=== PATIENT | female | born 1995 | race Caucasian/White ===

== ENCOUNTER → 2017-01-04 | Outpatient (REF) | payer BC, MEDICAID ==
[~2017-01-04] MED LIST: FERR-74 PO; NAPR220T76 PO; OXYC1TAB87 PO; PNV1CAPS13 PO
[2017-01-04 17:42] LABS: BILIRUBIN,URINE Negative (Negative); CLARITY,URINE Clear; COLOR,URINE Yellow; GLUCOSE, URINE (UA) Negative (Negative); LEUKOCYTE ESTERASE, URINE Negative (Negative); UROBILINOGEN,URINE 0.2 mg/dL (0.2-1.0)
== END ==
LOC: LAB 17:05
PROVIDERS: ATTEND Obstetrics & Gynecology
DX: Z34.81 Encounter for supervision of other normal pregnancy, first trimester (principal)
CPT/HCPCS: 81003; 87088

== ENCOUNTER → 2017-01-10 | Outpatient (CLI) | payer BC, MEDICAID ==
[2017-01-10 13:34] LABS: BASOPHILS % (AUTO) 0 % (0-2); EOSINOPHILS # (AUTO) 0.1 10^3uL; EOSINOPHILS % (AUTO) 1 % (0-4); LYMPHOCYTES # (AUTO) 1.3 X10^3; MEAN CORPUSCULAR HEMOGLOBIN 29.5 PG (26.0-34.0); MEAN CORPUSCULAR HGB CONC 33.3 g/dL (31.0-37.0); MEAN CORPUSCULAR VOLUME 89 FL (80-100); MEAN PLATELET VOLUME 9.4 FL (6.0-9.5); MONOCYTES # (AUTO) 0.2 X10^3; MONOCYTES % (AUTO) 3 % (3-11); NEUTROPHILS # (AUTO) 4.1 X10^3; NEUTROPHILS % (AUTO) 72 % (51-67); PLATELET COUNT 224 10^3uL (150-450); WHITE BLOOD COUNT 5.72 10^3uL (4.0-11.0)
--- NOTE | 2017-01-10 14:35 | Diagnostic Imaging Report ---
EXAM: Ultrasound OB, less than 14 weeks. DATE: January 10, 2017. INDICATION: A 21-year-old female, evaluation of dates. COMPARISON: February 12, 2015. FINDINGS: The cervical length is measured at 4.0 cm. The placenta is fundal and posterior without placenta previa. There is a single living intrauterine . heart rate is identified at 149 beats per minute. Estimated gestational age based on today's ultrasound measurements is 14 weeks and 1 day +/-1 week. anatomy is not well evaluated on this study. The fetus is in breech presentation. There is a simple-appearing cystic lesion in the right ovary measuring up to 2.4 x 1.7 cm in size which may relate to a follicle or simple cyst. There is no demonstrated free pelvic fluid or solid pelvic mass. IMPRESSION: 1. Single living intrauterine with estimated gestational age of 14 weeks and 1 day +/-1 week. 2. Limitations of anatomic assessment on this exam, relating to gestational age. Dictated by: Dictated on workstation # [id number]
[2017-01-10 18:01] LABS: HEPATITIS B SURFACE ANTIGEN C Negative
== END ==
LOC: RAD 13:16
PROVIDERS: ATTEND Obstetrics & Gynecology
DX: Z34.81 Encounter for supervision of other normal pregnancy, first trimester (principal); Z3A.14 14 weeks gestation of pregnancy
CPT/HCPCS: 36415; 76801; 85025; 86592; 86762; 86850; 86900; 86901; 87340